=== PATIENT | female | born 1985 | race Caucasian/White ===

== ENCOUNTER 2017-10-04 15:24 | Emergency (ER) | payer MEDICAID, OTHER ==
[2017-10-04 15:35] VITALS: BP 122/88; PULSE 103; RESP 18; TEMP 97.5; O2SAT 100
--- NOTE | 2017-10-04 16:10 | ED PDOC ---
Arrival/HPI - General Chief Complaint: Flu-like Symptoms Time Seen by Provider: 10/04/17 15:37 Historian: Patient - History of Present Illness Narrative History of Present Illness (Text): 10/04/17 16:53 32 yo F presents c/o diffuse red, swollen, itchy rash x 5 days, which started after taking amoxicillin x 3 days for cold symptoms. States that the rash started gradually. She recalls a prior reaction to taking PCN, however was not aware that amoxicillin was similar to PCN. Denies any fever, chills, recent travel, sore throat, joint pain, taking any medications for her symptoms, new soaps / lotions, new food. PMD none Past Medical History - Provider Review Nursing Documentation Reviewed: Yes - Cardiac Hx Cardiac Disorders: No - Pulmonary Hx Respiratory Disorders: No - Neurological Hx Neurological Disorder: No - HEENT Hx HEENT Disorder: No - Renal Hx Renal Disorder: No - Endocrine/Metabolic Hx Endocrine Disorders: No - Hematological/Oncological Hx Blood Disorders: No - Integumentary Hx Dermatological Disorder: No - Musculoskeletal/Rheumatological Hx Musculoskeletal Disorders: No - Gastrointestinal Hx Gastrointestinal Disorders: No - Genitourinary/Gynecological Hx Genitourinary Disorders: No - Psychiatric Hx Psychophysiologic Disorder: No Hx Substance Use: No Family/Social History - Physician Review Nursing Documentation Reviewed: Yes Family/Social History: No Known Family HX Smoking Status: Never Smoked Hx Alcohol Use: Yes Frequency of alcohol use: Socially Hx Substance Use: No Allergies/Home Meds Allergies/Adverse Reactions: Allergies Penicillins Allergy (Verified 10/04/17 15:34) RASH Review of Systems - Review of Systems Constitutional: Normal. absent: Fatigue, Weight Change, Fevers ENT: Normal, Rhinorrhea, Sinus Congestion. absent: Sore Throat, Epistaxis Respiratory: Normal, Cough. absent: SOB, Sputum, Wheezing Cardiovascular: Normal. absent: Chest Pain, Palpitations, Edema Musculoskeletal: Normal. absent: Arthralgias, Back Pain, Neck Pain Skin: Normal, Rash, Pruritis. absent: Skin Lesions Physical Exam Vital Signs Reviewed: Yes Vital Signs Temp Pulse Resp BP Pulse Ox 10/04/17 15:34 97.5 F L 103 H 18 122/88 100 Appearance: Positive for: Well-Appearing, Non-Toxic, Comfortable Pain Distress: None Mental Status: Positive for: Alert and Oriented X 3 - Systems Exam Head: Present: Atraumatic, Normocephalic Pupils: Present: PERRL Extroacular Muscles: Present: EOMI Conjunctiva: Present: Normal. No: Injected Mouth: Present: Moist Mucous Membranes Pharnyx: Present: Normal. No: ERYTHEMA, EXUDATE Neck: Present: Normal Range of Motion. No: Meningeal Signs, MIDLINE TENDERNESS Respiratory/Chest: Present: Clear to Auscultation, Good Air Exchange. No: Respiratory Distress, Accessory Muscle Use Cardiovascular: Present: Regular Rate and Rhythm, Normal S1, S2. No: Murmurs Upper Extremity: Present: Normal ROM, NORMAL PULSES, Neurovascularly Intact, Capillary Refill < 2s Lower Extremity: Present: NORMAL PULSES, Normal ROM, Neurovascularly Intact, Capillary Refill < 2 s Neurological: Present: GCS=15, CN II-XII Intact Skin: Present: Warm, Dry, Rashes (diffuse erythematous rash to the trunk and all 4 extremities), Normal Color Medical Decision Making ED Course and Treatment: 10/04/17 16:56 32 yo F presents c/o diffuse red, swollen, itchy rash x 5 days, which started after taking amoxicillin x 3 days for cold symptoms. Plan : - Benadryl PO - Pepcid PO - Prednisone PO Dx of allergic reaction was d/w the patient. Advised to d/c amoxicillin. Advised to follow up with referral physician in 1-2 days without fail. Advised to take medication as prescribed. Return to the emergency room at any time for any new or worsening symptoms. Patient states she fully agrees with and understands discharge instructions. States that she agrees with the plan and disposition. Verbalized and repeated discharge instructions and plan. I have given the patient opportunity to ask any additional questions. - Medication Orders Current Medication Orders: Discontinued Medications Diphenhydramine HCl (Benadryl) 50 mg PO STAT STA Stop: 10/04/17 16:07 Last Admin: 10/04/17 16:36 Dose: 50 mg Famotidine (Pepcid) 40 mg PO STAT STA Stop: 10/04/17 16:08 Last Admin: 10/04/17 16:37 Dose: 40 mg Prednisone (Prednisone Tab) 60 mg PO STAT STA Stop: 10/04/17 16:07 Last Admin: 10/04/17 16:37 Dose: 60 mg - PA / CERTIFIED RECREATIONAL THERAPIST / Resident Statement MD/DO has reviewed & agrees with the documentation as recorded. Disposition/Present on Arrival - Present on Arrival Any Indicators Present on Arrival: No History of DVT/PE: No History of Uncontrolled Diabetes: No Urinary Catheter: No History of Decub. Ulcer: No History Surgical Site Infection Following: None - Disposition Have Diagnosis and Disposition been Completed?: Yes Diagnosis: Allergic reaction caused by a drug Disposition: HOME/ ROUTINE Disposition Time: 16:08 Patient Plan: Discharge Condition: STABLE Discharge Instructions (ExitCare): General Allergic Reaction (ED) Print Language: TAJIK Additional Instructions: Thank you for letting us take care of you today. You were treated for allergic reaction. The emergency medical care you received today was directed at your acute symptoms. If you were prescribed any medication, please fill it and take as directed. It may take several days for your symptoms to resolve. Return to the Emergency Department if your symptoms worsen, do not improve, or if you have any other problems. Please contact your doctor in 2 days for re-evaluation and follow up / or call one of the physicians/clinics you have been referred to that are listed on the Patient Visit Information form that is included in your discharge packet. Bring any paperwork you were given at discharge with you along with any medications you are taking to your follow up visit. Our treatment cannot replace ongoing medical care by a primary care provider (PCP) outside of the emergency department. Thank you for allowing the [facility] team to be part of your care today. Prescriptions: DiphenhydrAMINE [Benadryl] 25 mg PO TID #20 cap Famotidine [Pepcid] 40 mg PO DAILY #20 tablet predniSONE [predniSONE Tab] 40 mg PO DAILY #8 tab Referrals: Dayna Beauchamp, [Primary Care Provider] - Follow up with primary [facility] [place]] - Follow up with primary Forms: [employer]), WORK NOTE
== END 2017-10-04 16:41 | disposition home or self-care (01) ==
LOC: ED 15:24
DX: L27.0 Generalized skin eruption due to drugs and medicaments taken internally (principal); T36.0X5A Adverse effect of penicillins, initial encounter